=== PATIENT | male | born 1950 | race Hispanic/Latino ===

== ENCOUNTER 2022-12-25 10:10 | Emergency (ER) | payer MEDICARE ==
[~2022-12-25] VITALS: Ht 165.1 cm; Wt 74.8 kg
[2022-12-25 10:57] VITALS: BP 142/78
[2022-12-25 11:00] VITALS: BP 132/75
[2022-12-25 11:30] VITALS: BP 132/72
[2022-12-25 12:00] VITALS: BP 149/91
[2022-12-25] MEDS ORDERED: KEFLEX500 MG PO (12:18)
[2022-12-25 12:30] VITALS: BP 131/80
== END 2022-12-25 12:38 | disposition home or self-care (01) ==
LOC: ED 10:10
PROC: 0HQGXZZ Repair Left Hand Skin, External Approach (ICD-10-PCS; principal; 2022-12-25)
DX: S61.412A Laceration without foreign body of left hand, initial encounter (principal); I10 Essential (primary) hypertension; W27.0XXA Contact with workbench tool, initial encounter; Y93.H9 Activity, other involving exterior property and land maintenance, building and construction; Y92.007 Garden or yard of unspecified non-institutional (private) residence as the place of occurrence of the external cause

== ENCOUNTER 2023-01-09 13:56 | Emergency (ER) | payer MEDICARE ==
[~2023-01-09] VITALS: Ht 165.1 cm; Wt 77.0 kg
[~2023-01-09 13:56] MED LIST: KEFLEX500 MG PO
[2023-01-09 14:38] VITALS: BP 130/78
== END 2023-01-09 14:40 | disposition home or self-care (01) ==
LOC: ED 13:56
DX: S61.412D Laceration without foreign body of left hand, subsequent encounter (principal); I10 Essential (primary) hypertension; X58.XXXD Exposure to other specified factors, subsequent encounter